=== PATIENT | male | born 1980 | race Caucasian/White ===

== ENCOUNTER 2017-08-16 15:53 | Emergency (ER) | payer SELFPAY ==
[~2017-08-16] VITALS: Ht 182.9 cm; Wt 85.0 kg
[2017-08-16 16:01] VITALS: BP 129/83; PULSE 88; RESP 17; TEMP 97.3; O2SAT 100
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
[2017-08-16] MEDS ORDERED: LIDOCAINE HCL 2% 20 ML VIAL INFIL ONE (16:30)
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
--- NOTE | 2017-08-16 18:15 | PD ---
Physical Exam Date Seen by Provider: Aug 16, 2017 Time Seen by Provider: 18:12 Narrative For full history and physical examination please see previous providers note. I was asked to repair laceration to patient's upper lip. Data Data Last Documented VS Vital Signs Date Time Temp Pulse Resp B/P (MAP) Pulse Ox O2 Delivery O2 Flow Rate FiO2 08/16/17 16:01 97.3 88 17 129/83 (98) [address] Brain W/O Iv Contrast(Rout) (08/16/17 ) Ct Facial Bones W/O Iv Cont (08/16/17 ) Chest, Single Ap (08/16/17 ) Lidocaine 2% Inj (Xylocaine 2% Inj) (08/16/17 16:30) Ct Cerv Spine W/O Contrast (08/16/17 ) MDM Medical Record Reviewed: Yes Supervised Visit with ROZINA: Yes Procedures Procedure Narrative LACERATION LOCATION: Tip of nose LENGTH: 0.5 cm NUMBER OF STITCHES/MARIA DOLORES: One stitch REPAIR: The area of the laceration was prepped with Betadine and sterilely draped. The laceration was infiltrated with 1% lidocaine. The wound was copiously irrigated and explored without evidence of foreign body, tendon injury or neurovascular injury. The wound was closed using 5-0 Ethilon. This was a 1 layer repair. A sterile dressing was applied. The patient was advised to keep the dressing clean and dry. Patient tolerated the procedure well. LACERATION LOCATION: Mid upper lip from the base of the nose through upper lip LENGTH: 3.5 cm NUMBER OF STITCHES/MARIA DOLORES: 14 stitches REPAIR: The area of the laceration was prepped with Betadine and sterilely draped. The laceration was infiltrated with 1% lidocaine. The wound was copiously irrigated and explored without evidence of foreign body, tendon injury or neurovascular injury. The wound was closed using 5-0 Ethilon. This was a 1 layer repair. A sterile dressing was applied. The patient was advised to keep the dressing clean and dry. Patient tolerated the procedure well. LACERATION LOCATION: Right mouth LENGTH: 0.5 cm NUMBER OF STITCHES/MARIA DOLORES: One stitch REPAIR: The area of the laceration was prepped with Betadine and sterilely draped. The laceration was infiltrated with 1% lidocaine. The wound was copiously irrigated and explored without evidence of foreign body, tendon injury or neurovascular injury. The wound was closed using 5-0 Ethilon. This was a 1 layer repair. A sterile dressing was applied. The patient was advised to keep the dressing clean and dry. Patient tolerated the procedure well. Condition: Stable Kimberly Sarmiento Aug 16, 2017 18:15
== END 2017-08-16 19:59 | disposition home or self-care (01) ==
LOC: NEPE 15:53
DX: S01.91XA Laceration without foreign body of unspecified part of head, initial encounter (principal); S20.312A Abrasion of left front wall of thorax, initial encounter; S40.212A Abrasion of left shoulder, initial encounter; F17.200 Nicotine dependence, unspecified, uncomplicated; Z23 Encounter for immunization; V95.9XXA Unspecified aircraft accident injuring occupant, initial encounter
CPT/HCPCS: 12013; 70450; 70486; 71045; 72125